=== PATIENT | female | born 1970 | race Caucasian/White ===

== ENCOUNTER → 2016-12-29 | Outpatient (CLI) | payer BC ==
[~2016-12-29] MED LIST: AMOX500T2 PO; IBUP600T26 PO; LORTABELIX PO
[2016-12-29 18:11] LABS: ALBUMIN/GLOBULIN RATIO 1.18 (1.00-1.93); ALKALINE PHOSPHATASE 94 U/L (45-117); ALT/SGPT 109 U/L (12-78); ANION GAP 9 MEQ/L (8-16); AST/SGOT 48 U/L (15-37); BILIRUBIN,TOTAL 0.5 MG/DL (0.2-1.0); BLOOD UREA NITROGEN 14 MG/DL (7-18); CALCIUM LEVEL 8.6 MG/DL (8.5-10.1); CARBON DIOXIDE LEVEL 28 MEQ/L (21-32); CHLORIDE LEVEL 107 MEQ/L (98-107); CHOLESTEROL LEVEL 284 MG/DL (<200); CREATININE FOR GFR 0.78 MG/DL (0.55-1.02); GLOMERULAR FILTRATION RATE > 60.0 (>58); GLUCOSE, FASTING 81 MG/DL (70-105); POTASSIUM SERUM 4.2 MEQ/L (3.5-5.1); SODIUM LEVEL 144 MEQ/L (136-145); TOTAL PROTEIN 7.4 GM/DL (6.4-8.2); TRIGLYCERIDES LEVEL 186 MG/DL (<150)
== END ==
LOC: M WUC 11:22
PROVIDERS: ATTEND Internal Medicine
DX: E03.9 Hypothyroidism, unspecified (principal)

== ENCOUNTER → 2017-04-13 | Outpatient (CLI) | payer BC ==
[2017-04-13 13:45] LABS: ALBUMIN/GLOBULIN RATIO 1.11 (1.00-1.93); ALKALINE PHOSPHATASE 106 U/L (45-117); ALT/SGPT 82 U/L (12-78); ANION GAP 7 MEQ/L (8-16); AST/SGOT 30 U/L (7-37); BILIRUBIN,TOTAL 0.4 MG/DL (0.2-1.0); BLOOD UREA NITROGEN 14 MG/DL (7-18); CALCIUM LEVEL 9.2 MG/DL (8.5-10.1); CARBON DIOXIDE LEVEL 30 MEQ/L (21-32); CHLORIDE LEVEL 106 MEQ/L (98-107); CHOLESTEROL LEVEL 165 MG/DL (<200); GLOMERULAR FILTRATION RATE > 60.0 (>58); GLUCOSE, FASTING 91 MG/DL (70-105); POTASSIUM SERUM 4.4 MEQ/L (3.5-5.1); SODIUM LEVEL 143 MEQ/L (136-145); TOTAL PROTEIN 7.6 GM/DL (6.4-8.2); TRIGLYCERIDES LEVEL 91 MG/DL (<150)
== END ==
LOC: M WUC 10:15
PROVIDERS: ATTEND Internal Medicine
DX: E78.5 Hyperlipidemia, unspecified (principal); E03.9 Hypothyroidism, unspecified

== ENCOUNTER 2017-06-10 13:11 | Day surgery (SDC) | payer BC ==
[2017-06-10] MEDS ORDERED: NS 1,000 ML IV (13:45)
[2017-06-10] MEDS ORDERED: PROPOFOL 200 MG/20 ML VIAL As Ordered (15:01)
[2017-06-10] MEDS ORDERED: LIDOCAINE 2% INJ 100 MG/5 ML SDV (FOR ANES.) As Ordered (15:01)
== END 2017-06-10 15:45 | disposition home or self-care (01) ==
LOC: M OPP 15:45
DX: R10.13 Epigastric pain (principal); K22.8 Other specified diseases of esophagus; K44.9 Diaphragmatic hernia without obstruction or gangrene; K31.89 Other diseases of stomach and duodenum; E78.00 Pure hypercholesterolemia, unspecified; E03.9 Hypothyroidism, unspecified; K76.0 Fatty (change of) liver, not elsewhere classified; F41.9 Anxiety disorder, unspecified; F32.9 Major depressive disorder, single episode, unspecified; F17.210 Nicotine dependence, cigarettes, uncomplicated; Z79.899 Other long term (current) drug therapy; Z88.8 Allergy status to other drugs, medicaments and biological substances; Z92.3 Personal history of irradiation
CPT/HCPCS: 43239

== ENCOUNTER 2017-09-12 17:08 | Emergency (ER) | payer OTHER, BC ==
[2017-09-12] MEDS: MELOXICAM (MOBIC) 7.5 MG TAB PO (19:29)
== END 2017-09-12 20:12 | disposition home or self-care (01) ==
LOC: M ED 17:08
DX: S93.401A Sprain of unspecified ligament of right ankle, initial encounter (principal); X50.1XXA Overexertion from prolonged static or awkward postures, initial encounter; Y92.89 Other specified places as the place of occurrence of the external cause; E78.5 Hyperlipidemia, unspecified; K21.9 Gastro-esophageal reflux disease without esophagitis; E03.9 Hypothyroidism, unspecified; F17.210 Nicotine dependence, cigarettes, uncomplicated; Z88.1 Allergy status to other antibiotic agents; Z79.899 Other long term (current) drug therapy
CPT/HCPCS: 73610

== ENCOUNTER → 2017-09-21 | Outpatient (CLI) | payer BC ==
[2017-09-21 11:17] LABS: ALBUMIN 3.7 GM/DL (3.2-5.2); ALBUMIN/GLOBULIN RATIO 1.16 (1.00-1.93); ALKALINE PHOSPHATASE 105 U/L (45-117); ALT/SGPT 71 U/L (12-78); ANION GAP 4 MEQ/L (8-16); AST/SGOT 37 U/L (7-37); BILIRUBIN,TOTAL 0.6 MG/DL (0.2-1.0); BLOOD UREA NITROGEN 15 MG/DL (7-18); CALCIUM LEVEL 8.7 MG/DL (8.5-10.1); CARBON DIOXIDE LEVEL 29 MEQ/L (21-32); CHLORIDE LEVEL 111 MEQ/L (98-107); CHOLESTEROL LEVEL 173 MG/DL (<200); CHOLESTEROL RISK RATIO 3.264 (<5); CREATININE FOR GFR 0.72 MG/DL (0.55-1.30); GLOMERULAR FILTRATION RATE > 60.0 (>58); GLUCOSE, FASTING 97 MG/DL (70-100); HDL CHOLESTEROL 53 MG/DL (>40); LDL CHOLESTEROL 89.4 MG/DL (<100); NON-HDL-C 120 MG/DL; POTASSIUM SERUM 4.4 MEQ/L (3.5-5.1); SODIUM LEVEL 144 MEQ/L (136-145); THYROID STIMULATING HORMONE 0.089 uIU/ML (0.358-3.740); TOTAL PROTEIN 6.9 GM/DL (6.4-8.2); TRIGLYCERIDES LEVEL 153 MG/DL (<150)
== END ==
LOC: M LAB 09:56
DX: E78.5 Hyperlipidemia, unspecified (principal)
CPT/HCPCS: 84443

== ENCOUNTER → 2018-03-22 | Outpatient (CLI) | payer BC ==
[2018-03-22 18:35] LABS: ALBUMIN 3.8 GM/DL (3.2-5.2); ALBUMIN/GLOBULIN RATIO 1.15 (1.00-1.93); ALKALINE PHOSPHATASE 115 U/L (45-117); ALT/SGPT 61 U/L (12-78); ANION GAP 7 MEQ/L (8-16); AST/SGOT 31 U/L (7-37); BILIRUBIN,TOTAL 0.4 MG/DL (0.2-1.0); BLOOD UREA NITROGEN 11 MG/DL (7-18); CALCIUM LEVEL 8.6 MG/DL (8.5-10.1); CARBON DIOXIDE LEVEL 29 MEQ/L (21-32); CHLORIDE LEVEL 109 MEQ/L (98-107); CHOLESTEROL LEVEL 162 MG/DL (<200); CHOLESTEROL RISK RATIO 3.306 (<5); CREATININE FOR GFR 0.88 MG/DL (0.55-1.30); GLOMERULAR FILTRATION RATE > 60.0 (>58); GLUCOSE, FASTING 87 MG/DL (70-100); HDL CHOLESTEROL 49 MG/DL (>40); LDL CHOLESTEROL 90 MG/DL (<100); NON-HDL-C 113 MG/DL; POTASSIUM SERUM 4.5 MEQ/L (3.5-5.1); SODIUM LEVEL 145 MEQ/L (136-145); TOTAL PROTEIN 7.1 GM/DL (6.4-8.2); TRIGLYCERIDES LEVEL 113 MG/DL (<150)
== END ==
LOC: M WUC 09:29
DX: E78.5 Hyperlipidemia, unspecified (principal); E03.9 Hypothyroidism, unspecified
CPT/HCPCS: 84443

== ENCOUNTER → 2018-09-22 | Outpatient (CLI) | payer BC ==
[~2018-09-22] MED LIST changes: +CATA0.1T PO; +EFFE150C2 PO; +LIPI10TA PO; +MOBI4TAB PO; +PRIL20TA2 PO; +SYNT88TA2 PO
[2018-09-22 14:11] LABS: ALBUMIN 4.1 GM/DL (3.2-5.2); ALT/SGPT 49 U/L (12-78); BILIRUBIN,TOTAL 0.6 MG/DL (0.2-1.0); BLOOD UREA NITROGEN 14 MG/DL (7-18); CALCIUM LEVEL 9.4 MG/DL (8.5-10.1); CARBON DIOXIDE LEVEL 27 MEQ/L (21-32); CHLORIDE LEVEL 106 MEQ/L (98-107); CHOLESTEROL LEVEL 194 MG/DL (<200); CREATININE FOR GFR 0.78 MG/DL (0.55-1.30); GLOMERULAR FILTRATION RATE > 60.0 (>58); GLUCOSE, FASTING 82 MG/DL (70-100); HDL CHOLESTEROL 52 MG/DL (>40); LDL CHOLESTEROL 109 MG/DL (<100); NON-HDL-C 142 MG/DL; POTASSIUM SERUM 4.5 MEQ/L (3.5-5.1); SODIUM LEVEL 140 MEQ/L (136-145); TOTAL PROTEIN 7.7 GM/DL (6.4-8.2); TRIGLYCERIDES LEVEL 167 MG/DL (<150)
== END ==
LOC: M WUC 10:21
PROVIDERS: ATTEND Internal Medicine
DX: E78.5 Hyperlipidemia, unspecified (principal); E03.9 Hypothyroidism, unspecified; K21.9 Gastro-esophageal reflux disease without esophagitis

== ENCOUNTER → 2018-10-29 | Outpatient (CLI) | payer OTHER ==
--- NOTE | 2018-10-30 07:49 | ECGEPIP ---
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
== END ==
LOC: M EKG 11:59
PROVIDERS: ATTEND Orthopaedic Surgery
DX: Z01.818 Encounter for other preprocedural examination (principal)

== ENCOUNTER → 2019-04-07 | Outpatient (CLI) | payer OTHER, BC ==
[2019-04-07 13:06] LABS: ALBUMIN 3.8 GM/DL (3.2-5.2); ALT/SGPT 79 U/L (12-78); BILIRUBIN,TOTAL 0.6 MG/DL (0.2-1.0); BLOOD UREA NITROGEN 14 MG/DL (7-18); CARBON DIOXIDE LEVEL 31 MEQ/L (21-32); CHLORIDE LEVEL 106 MEQ/L (98-107); CHOLESTEROL LEVEL 190 MG/DL (<200); CREATININE FOR GFR 0.87 MG/DL (0.55-1.30); GLOMERULAR FILTRATION RATE > 60.0 (>58); GLUCOSE, FASTING 95 MG/DL (70-100); HDL CHOLESTEROL 50 MG/DL (>40); LDL CHOLESTEROL 107 MG/DL (<100); NON-HDL-C 140 MG/DL; POTASSIUM SERUM 4.3 MEQ/L (3.5-5.1); SODIUM LEVEL 143 MEQ/L (136-145); TOTAL PROTEIN 7.5 GM/DL (6.4-8.2); TRIGLYCERIDES LEVEL 167 MG/DL (<150)
== END ==
LOC: M WUC 09:15
PROVIDERS: ATTEND Internal Medicine
DX: E78.5 Hyperlipidemia, unspecified (principal); E03.9 Hypothyroidism, unspecified; J44.9 Chronic obstructive pulmonary disease, unspecified

== ENCOUNTER → 2020-03-16 | Outpatient (CLI) | payer OTHER ==
--- NOTE | 2020-03-16 15:47 | REP ---
INDICATION: PAIN IN UPPER R ARM R/O DVT PT TO STAY FOR RESULTS COMPARISON: None. TECHNIQUE: Real time compression and duplex Doppler evaluation of the Right upper extremity deep venous system is performed. FINDINGS: The Right subclavian, jugular, axillary, brachial, basilic and cephalic veins are fully compressible where accessible with transducer pressure, and demonstrate no intraluminal thrombus and normal venous waveforms. There is no evidence of deep venous thrombosis. IMPRESSION: No evidence of deep venous thrombosis of the Right upper extremity deep vein system. <Electronically signed by Genaro Clemons > 03/16/20 [id number]
== END ==
LOC: M RAD 15:01
PROVIDERS: ATTEND Orthopaedic Surgery
DX: M79.621 Pain in right upper arm (principal)

== ENCOUNTER → 2021-01-29 | Outpatient (CLI) | payer OTHER ==
--- NOTE | 2021-01-30 09:12 | REP ---
INDICATION: PAIN IN LT KNEE. COMPARISON: None. TECHNIQUE: Multiple sequences obtained in the axial, coronal and sagittal planes. FINDINGS: Menisci: There is a complex tear of the posterior horn of the medial meniscus. Cruciate ligaments: Intact. Collateral ligaments: There is mild edema along the medial collateral ligament which may represent a mild sprain. Extensor mechanism/patellar retinacula: There is mild edema in the distal end of the quadriceps tendon and in the proximal end of the patellar tendon, which may represent tendinitis. Cartilage: There is mild global chondromalacia, with a more moderate degree of diffuse chondromalacia of the medial femoral condyle and tibial plateau. Bone marrow: Normal signal, no edema or occult fracture. Joint fluid: There is a small joint effusion. Popliteal region: No cyst. IMPRESSION: Complex tear posterior horn medial meniscus. Suspect mild sprain medial collateral ligament. There appears to be mild tendinitis involving the distal quadriceps tendon and proximal patellar tendon at their respective insertion sites onto the patella. Mild global chondromalacia, more moderate along the medial femoral condyle and tibial plateau. Small joint effusion. <Electronically signed by Genaro Clemons > 01/30/21 [id number]
== END ==
LOC: M RAD 11:03
PROVIDERS: ATTEND Physician Assistant
DX: M25.562 Pain in left knee (principal); S83.412A Sprain of medial collateral ligament of left knee, initial encounter

== ENCOUNTER → 2021-09-22 | Outpatient (CLI) | payer BC | LOC: M WHC 15:30 | PROVIDERS: ATTEND Internal Medicine | DX: Z12.31 Encounter for screening mammogram for malignant neoplasm of breast (principal); Z78.0 Asymptomatic menopausal state ==

== ENCOUNTER → 2022-06-26 | Outpatient (CLI) | payer BC ==
[~2022-06-26] MED LIST changes: +SYNT75TA PO; +VENL75CA2 PO
== END ==
LOC: M LABSMTC 10:08
PROVIDERS: ATTEND Anesthesiology
DX: Z01.812 Encounter for preprocedural laboratory examination (principal); Z11.52 Encounter for screening for COVID-19

== ENCOUNTER → 2022-06-29 | Day surgery (SDC) | payer BC ==
[~2022-06-29] VITALS: Ht 165.1 cm; Wt 65.3 kg
[~2022-06-29] MED LIST changes: +LIDOCAINE 2% 100MG/5ML SDV (FOR ANES.) As Ordered ONE; +NS 1,000 ML IV ONE; +propofoL 200 MG/20 ML VIAL As Ordered ONE
[2022-06-29 11:55] VITALS: BP 117/70
== END | disposition home or self-care (01) ==
LOC: M OPP 08:45
PROVIDERS: ATTEND Internal Medicine Gastroenterology
DX: Z12.11 Encounter for screening for malignant neoplasm of colon (principal); D12.0 Benign neoplasm of cecum; D12.5 Benign neoplasm of sigmoid colon; K63.5 Polyp of colon; D49.0 Neoplasm of unspecified behavior of digestive system; E78.00 Pure hypercholesterolemia, unspecified; E03.9 Hypothyroidism, unspecified; Z92.3 Personal history of irradiation; F17.200 Nicotine dependence, unspecified, uncomplicated; Z79.02 Long term (current) use of antithrombotics/antiplatelets; Z79.1 Long term (current) use of non-steroidal anti-inflammatories (NSAID); Z79.890 Hormone replacement therapy; Z79.899 Other long term (current) drug therapy; Z80.1 Family history of malignant neoplasm of trachea, bronchus and lung

== ENCOUNTER → 2022-11-23 | Outpatient (CLI) | payer BC ==
[~2022-11-23] MED LIST changes: -LIDOCAINE 2% 100MG/5ML SDV (FOR ANES.) As Ordered ONE; -NS 1,000 ML IV ONE; -propofoL 200 MG/20 ML VIAL As Ordered ONE
[2022-11-23 20:31] LABS: ALBUMIN 4.1 G/DL (3.2-5.2); ALKALINE PHOSPHATASE 94 U/L (46-116); ALT/SGPT 55 U/L (7.0-40); AST/SGOT 28 U/L (<34); BILIRUBIN,TOTAL 0.3 MG/DL (0.3-1.2); BLOOD UREA NITROGEN 15 MG/DL (9-23); CARBON DIOXIDE LEVEL 28 MMOL/L (20-31); CHLORIDE LEVEL 107 MMOL/L (98-107); CHOLESTEROL LEVEL 283 MG/DL (<200); CHOLESTEROL RISK RATIO 4.82 (<5); CREATININE FOR GFR 0.83 MG/DL (0.55-1.30); GLOMERULAR FILTRATION RATE > 60.0 (>51); GLUCOSE, FASTING 94 MG/DL (60-100); HDL CHOLESTEROL 58.6 MG/DL (>40); LDL CHOLESTEROL 194.6 MG/DL (<100); NON-HDL-C 224.4 MG/DL; POTASSIUM SERUM 3.7 MMOL/L (3.5-5.1); SODIUM LEVEL 141 MMOL/L (136-145); TOTAL PROTEIN 6.9 G/DL (5.7-8.2); TRIGLYCERIDES LEVEL 149 MG/DL (<150)
[2022-11-23 20:32] LABS: THYROID STIMULATING HORMONE 3.132 uIU/ML (0.55-4.78)
== END ==
LOC: M WUC 15:21
PROVIDERS: ATTEND Internal Medicine
DX: E03.9 Hypothyroidism, unspecified (principal); E78.5 Hyperlipidemia, unspecified

== ENCOUNTER 2023-04-08 10:54 | Day surgery (SDC) | payer BC ==
[~2023-04-08] VITALS: Ht 165.1 cm; Wt 65.4 kg
[~2023-04-08 10:54] MED LIST changes: +NS 1,000 ML IV ONE; +OMEP40CA5 PO; +VENL150C43 PO
[2023-04-08] MEDS ORDERED: LIDOCAINE 2% 100MG/5ML SDV (FOR ANES.) As Ordered ONE (12:45)
[2023-04-08] MEDS ORDERED: propofoL 200 MG/20 ML VIAL As Ordered ONE (12:45)
[2023-04-08 13:22] VITALS: TEMP 96.5
[2023-04-08 13:38] VITALS: BP 118/68; O2SAT 98
== END 2023-04-08 13:50 | disposition home or self-care (01) ==
LOC: M OPP 10:54
PROVIDERS: ATTEND Internal Medicine Gastroenterology
DX: Z86.010 Personal history of colon polyps (principal); K63.5 Polyp of colon; R12 Heartburn; E78.00 Pure hypercholesterolemia, unspecified; F17.210 Nicotine dependence, cigarettes, uncomplicated; Z79.899 Other long term (current) drug therapy; Z88.1 Allergy status to other antibiotic agents; E07.9 Disorder of thyroid, unspecified; D64.9 Anemia, unspecified; J30.9 Allergic rhinitis, unspecified; K21.9 Gastro-esophageal reflux disease without esophagitis; Z80.1 Family history of malignant neoplasm of trachea, bronchus and lung

== ENCOUNTER → 2023-06-07 | Outpatient (REF) | payer BC ==
[~2023-06-07] MED LIST changes: -EFFE150C2 PO; +EFFE150C3 PO; -NS 1,000 ML IV ONE
[2023-06-07 22:00] LABS: ALBUMIN 4.3 G/DL (3.2-5.2); ALKALINE PHOSPHATASE 93 U/L (46-116); ALT/SGPT 52 U/L (7.0-40); AST/SGOT 29 U/L (<34); BILIRUBIN,TOTAL 0.4 MG/DL (0.3-1.2); BLOOD UREA NITROGEN 12 MG/DL (9-23); CALCIUM LEVEL 9.6 MG/DL (8.5-10.1); CARBON DIOXIDE LEVEL 30 MMOL/L (20-31); CHLORIDE LEVEL 108 MMOL/L (98-107); CHOLESTEROL LEVEL 169 MG/DL (<200); CHOLESTEROL RISK RATIO 3.05 (<5); CREATININE FOR GFR 0.74 MG/DL (0.55-1.30); GLOMERULAR FILTRATION RATE > 60.0 (>51); GLUCOSE, FASTING 96 MG/DL (60-100); HDL CHOLESTEROL 55.3 MG/DL (>40); LDL CHOLESTEROL 91.5 MG/DL (<100); NON-HDL-C 113.7 MG/DL; POTASSIUM SERUM 4.1 MMOL/L (3.5-5.1); SODIUM LEVEL 139 MMOL/L (136-145); TOTAL PROTEIN 7.4 G/DL (5.7-8.2); TRIGLYCERIDES LEVEL 111 MG/DL (<150)
[2023-06-07 22:02] LABS: THYROID STIMULATING HORMONE 0.946 uIU/ML (0.55-4.78)
== END ==
LOC: M LAB REF 21:14
PROVIDERS: ATTEND Internal Medicine
DX: E78.5 Hyperlipidemia, unspecified (principal); E03.9 Hypothyroidism, unspecified

== ENCOUNTER → 2023-07-24 | Outpatient (CLI) | payer BC | LOC: M WUC 11:05 | PROVIDERS: ATTEND Internal Medicine | DX: R11.0 Nausea (principal) ==

== ENCOUNTER → 2023-12-23 | Outpatient (CLI) | payer BC ==
[2023-12-23 11:25] LABS: THYROID STIMULATING HORMONE 1.989 uIU/ML (0.55-4.78)
[2023-12-23 11:26] LABS: ALBUMIN 3.8 G/DL (3.2-5.2); ALKALINE PHOSPHATASE 110 U/L (46-116); ALT/SGPT 44 U/L (7.0-40); AST/SGOT 20 U/L (<34); BILIRUBIN,TOTAL 0.5 MG/DL (0.3-1.2); BLOOD UREA NITROGEN 11 MG/DL (9-23); CALCIUM LEVEL 9.7 MG/DL (8.5-10.1); CARBON DIOXIDE LEVEL 30 MMOL/L (20-31); CHLORIDE LEVEL 108 MMOL/L (98-107); CHOLESTEROL LEVEL 193 MG/DL (<200); CHOLESTEROL RISK RATIO 4.15 (<5); CREATININE FOR GFR 0.72 MG/DL (0.55-1.30); GLOMERULAR FILTRATION RATE > 60.0 (>51); GLUCOSE, FASTING 85 MG/DL (60-100); HDL CHOLESTEROL 46.5 MG/DL (>40); LDL CHOLESTEROL 119.3 MG/DL (<100); NON-HDL-C 146.5 MG/DL; POTASSIUM SERUM 4.2 MMOL/L (3.5-5.1); SODIUM LEVEL 142 MMOL/L (136-145); TOTAL PROTEIN 6.9 G/DL (5.7-8.2); TRIGLYCERIDES LEVEL 136 MG/DL (<150)
== END ==
LOC: M WUC 08:40
PROVIDERS: ATTEND Internal Medicine
DX: E78.5 Hyperlipidemia, unspecified (principal); E03.9 Hypothyroidism, unspecified

== ENCOUNTER → 2024-06-23 | Outpatient (REF) | payer BC ==
[2024-06-23 13:00] LABS: ALBUMIN 4.1 G/DL (3.2-5.2); ALKALINE PHOSPHATASE 115 U/L (35-104); ALT/SGPT 39 U/L (7.0-40); AST/SGOT 22 U/L (<34); BILIRUBIN,TOTAL 0.6 MG/DL (0.3-1.2); BLOOD UREA NITROGEN 14 MG/DL (9-23); CALCIUM LEVEL 9.9 MG/DL (8.5-10.1); CARBON DIOXIDE LEVEL 32 MMOL/L (20-31); CHLORIDE LEVEL 103 MMOL/L (98-107); CHOLESTEROL LEVEL 191 MG/DL (<200); CHOLESTEROL RISK RATIO 3.35 (<5); CREATININE FOR GFR 0.77 MG/DL (0.55-1.30); GLOMERULAR FILTRATION RATE > 60.0 (>51); GLUCOSE, FASTING 85 MG/DL (60-100); POTASSIUM SERUM 4.2 MMOL/L (3.5-5.1); SODIUM LEVEL 142 MMOL/L (136-145); TOTAL PROTEIN 7.3 G/DL (5.7-8.2); TRIGLYCERIDES LEVEL 105 MG/DL (<150)
== END ==
LOC: M LABWUC 11:19
PROVIDERS: ATTEND Internal Medicine
DX: E78.5 Hyperlipidemia, unspecified (principal); E03.9 Hypothyroidism, unspecified

== ENCOUNTER → 2024-06-25 | Outpatient (CLI) | payer BC | LOC: M WHC 13:51 | PROVIDERS: ATTEND Internal Medicine | DX: Z12.31 Encounter for screening mammogram for malignant neoplasm of breast (principal); R92.323 Mammographic fibroglandular density, bilateral breasts ==

== ENCOUNTER → 2025-01-29 | Outpatient (CLI) | payer BC ==
[2025-01-29 14:24] LABS: ALT/SGPT 35 U/L (7.0-40); AST/SGOT 25 U/L (<34); CALCIUM LEVEL 9.2 MG/DL (8.5-10.1); CARBON DIOXIDE LEVEL 30 MMOL/L (20-31); CHLORIDE LEVEL 108 MMOL/L (98-107); CHOLESTEROL LEVEL 147 MG/DL (<200); CHOLESTEROL RISK RATIO 2.88 (<5); CREATININE FOR GFR 0.77 MG/DL (0.55-1.30); GLOMERULAR FILTRATION RATE > 90.0 (>51); LDL CHOLESTEROL 81.9 MG/DL (<100); NON-HDL-C 96.1 MG/DL; POTASSIUM SERUM 4.2 MMOL/L (3.5-5.1); SODIUM LEVEL 142 MMOL/L (136-145); TRIGLYCERIDES LEVEL 71 MG/DL (<150)
== END ==
LOC: M WUC 10:26
PROVIDERS: ATTEND Internal Medicine
DX: E03.9 Hypothyroidism, unspecified (principal); E78.5 Hyperlipidemia, unspecified